=== PATIENT | male | born 1960 | race Caucasian/White ===

== ENCOUNTER 2022-12-28 10:58 | Inpatient (IN) | payer OTHER, MEDICAID ==
[~2022-12-28] VITALS: Ht 182.9 cm; Wt 111.6 kg
--- NOTE | 2022-12-28 11:01 | NUR ---
PATIENT BIBA TO BED 4.
[2022-12-28 11:04] VITALS: BP 136/83
[2022-12-28] MEDS ORDERED: NACL 0.9% 1,000 ML IV SCH (11:10)
[2022-12-28] MEDS ORDERED: KETOROLAC 15 MG/ML VIAL IVP ONE (11:15)
[2022-12-28 12:12] LABS: BASOPHILS # (AUTO) 0.1 K/uL (0.00-0.22); BASOPHILS % (AUTO) 0.7 % (0.0-2.0); EOSINOPHILS # (AUTO) 0.1 K/uL (0-0.4); EOSINOPHILS % (AUTO) 1.4 % (0.0-4.0); HEMATOCRIT 42.6 % (36-52); HEMOGLOBIN 14.7 g/dL (12.0-18.0); LYMPHOCYTES # (AUTO) 1.4 K/uL (2.0-11.5); LYMPHOCYTES % (AUTO) 16.7 % (20.5-51.1); MEAN CORPUSCULAR HEMOGLOBIN 30 pg (27-31); MEAN CORPUSCULAR HGB CONC 35 g/dL (33-37); MEAN CORPUSCULAR VOLUME 87.6 fL (80-94); MONOCYTES # (AUTO) 0.7 K/uL (0.8-1.0); MONOCYTES % (AUTO) 9.1 % (1.7-9.3); NEUTROPHILS # (AUTO) 5.9 K/uL (1.8-7.7); NEUTROPHILS % (AUTO) 72.1 % (42.2-75.2); PLATELET COUNT (AUTO) 304 K/uL (140-450); RED BLOOD CELL COUNT(AUTO) 4.86 MIL/uL (4.20-6.10); RED CELL DISTRIBUTION WIDTH 13.2 % (11.6-13.7); WHITE BLOOD COUNT (AUTO) 8.1 K/uL (4.8-10.8)
[2022-12-28] MEDS ORDERED: DOCUSATE SODIUM 100 MG GELCAP PO SCH (12:20)
[2022-12-28] MEDS ORDERED: POLYETHYLENE GLYCOL 17 GM/PKT PO ONE (12:20)
[2022-12-28] MEDS ORDERED: LACTULOSE 20 GM/30 ML UDC PO ONE (12:20)
[2022-12-28] MEDS ORDERED: SODIUM PHOSPHATE 118 ML ENEM RC ONE (12:20)
[2022-12-28 12:35] LABS: APPEARANCE,URINE CLEAR (CLEAR); BILIRUBIN,URINE NEGATIVE (NEGATIVE); BLOOD, URINE NEGATIVE (NEGATIVE); COLOR,URINE YELLOW (YELLOW); LEUKOCYTE ESTERASE ,URINE NEGATIVE (NEGATIVE); NITRITE, URINE NEGATIVE (NEGATIVE); PH,URINE 6.5 (5.0-9.0); UGLUCOSE NEGATIVE (NEGATIVE)
[2022-12-28 12:45] LABS: ALBUMIN 4.3 g/dL (3.4-5.0); ANION GAP 13.2 (8-16); CARBON DIOXIDE 27.4 mmol/L (21-32); CREATININE 1.4 mg/dL (0.6-1.3); POTASSIUM 4.6 mmol/L (3.5-5.1); TOTAL BILIRUBIN 0.5 mg/dL (0.0-1.0)
[2022-12-28] MEDS ORDERED: NA P133N16 RC (13:47)
[2022-12-28] MEDS ORDERED: DOCU-299 PO (13:47)
[2022-12-28] MEDS ORDERED: LACT-85 PO (13:47)
[2022-12-28] MEDS ORDERED: POLY17PD72 PO (13:47)
--- NOTE | 2022-12-28 14:39 | NUR ---
PT AMBULATES INDEPENDENTLY WITH STEADY GAIT, VOIDS URINE IN BATHROOM TOLERATED ENEMA, STAYED IN L SIDE LYING FOR OVER 5 MINUTES. UNSUCCESSFUL BOWEL MOVEMENT IN BR
[2022-12-28] MEDS ORDERED: AMLO10TA88 PO (16:53)
[2022-12-28] MEDS ORDERED: CLON0.1T16 PO (16:53)
[2022-12-28] MEDS ORDERED: GEMF600T6 PO (16:53)
[2022-12-28] MEDS ORDERED: [UNRECOGNIZED DRUG - CODE] PO (16:53)
[2022-12-28] MEDS ORDERED: HYDR-4255 PO (16:53)
[2022-12-28] MEDS ORDERED: LISI20TA29 PO (16:53)
[2022-12-28] MEDS ORDERED: TAMS0.4C97 PO (16:53)
[2022-12-28] MEDS ORDERED: ATI.5 (16:53)
[2022-12-28] MEDS ORDERED: METO-251 PO (16:53)
[2022-12-28] MEDS ORDERED: BUSP10TA4 PO (16:53)
[2022-12-28] MEDS ORDERED: OMEP1CAP PO (16:53)
[2022-12-28] MEDS ORDERED: SODI100076 PO (16:53)
[2022-12-28] MEDS ORDERED: DOCU-3 PO (16:53)
[2022-12-28] MEDS ORDERED: OLAN10TA70 PO (16:53)
[2022-12-28] MEDS ORDERED: NACL 0.9% 1,000 ML IV ONE (17:45)
--- NOTE | 2022-12-28 20:16 | NUR ---
PER DR. WATTS PLACE ORDER FOR CT WITH CONTRAST FOR ABD AND PELVIS
--- NOTE | 2022-12-28 20:53 | NUR ---
Pt report given to Spencer ARRIETA. Transfer of care at this time.
[2022-12-28 21:20] VITALS: BP 160/79
--- NOTE | 2022-12-28 21:20 | NUR ---
RECEIVED PT FROM ER, AWAKE, ALERT AND ORIENTED X 4. DENIES PAIN. DENIES SHORTNESS OF BREATH. SKIN WARM AND DRY TO TOUCH. SAFETY PRECAUTIONS IN PLACE, CALL LIGHT GIVEN TO PT, PROVIDED INSTRUCTION ON USE, RETURN DEMO DONE, ENCOURAGED TO CALL IF ASSISTANCE IS NEEDED, PT VERBALLY AGREED.
[2022-12-28] MEDS ORDERED: MAG SULF 2000 MG/WATER PREMIX 50 ML IV PRN (21:40)
[2022-12-28] MEDS ORDERED: POTASSIUM CHLORIDE 10 MEQ TABER PO PRN (21:40)
[2022-12-28] MEDS ORDERED: DOCUSATE SODIUM 100 MG GELCAP PO PRN (21:40)
[2022-12-28] MEDS ORDERED: ONDANSETRON 4 MG/2 ML VIAL IVP PRN (21:40)
[2022-12-28] MEDS ORDERED: ACETAMINOPHEN 325 MG TAB PO PRN (21:40)
[2022-12-28] MEDS ORDERED: MORPHINE SULFATE 2 MG/ML SYR IVP PRN (21:40)
[2022-12-28] MEDS: METOPROLOL 50 MG TAB PO SCH (22:10)
[2022-12-28] MEDS: LORazepam 2 MG/ML VIAL IVP PRN (22:11)
[2022-12-28] MEDS: ZOLPIDEM 10 MG TAB PO PRN (23:23)
[2022-12-29] VITALS: BP 140/84
--- NOTE | 2022-12-29 00:14 | NUR ---
CLARIFIED ORDER FOR CT SCAN ABDOMEN/PELVIS WITH CONTRAST WITH DR. BELTRAN SINCE PT HAD CT SCAN ABD/PELVIS WITHOUT CONTRAST, PER DC ORDER. WILL CARRY OUT.
--- NOTE | 2022-12-29 00:24 | NUR ---
PATIENT IS ASLEEP. NO S/SX OF PAIN NOR DISCOMFORT. CALL LIGHT IN REACH.
[2022-12-29 04:00] VITALS: BP 156/91
--- NOTE | 2022-12-29 06:19 | NUR ---
PATIENT IS ASLEEP. NO DISTRESS NOTED. ALL NEEDS ATTENDED TO. SAFETY PRECAUTIONS MAINTAINED DURING THE SHIFT, CALL LIGHT REMAINS WITHIN REACH.
[2022-12-29 06:40] LABS: BASOPHILS % (AUTO) 0.6 % (0.0-2.0); EOSINOPHILS # (AUTO) 0.2 K/uL (0-0.4); EOSINOPHILS % (AUTO) 1.9 % (0.0-4.0); HEMOGLOBIN 14.7 g/dL (12.0-18.0); LYMPHOCYTES # (AUTO) 1.2 K/uL (2.0-11.5); LYMPHOCYTES % (AUTO) 13.6 % (20.5-51.1); MEAN CORPUSCULAR HEMOGLOBIN 30 pg (27-31); MEAN CORPUSCULAR HGB CONC 35 g/dL (33-37); MEAN CORPUSCULAR VOLUME 86.9 fL (80-94); MONOCYTES # (AUTO) 0.7 K/uL (0.8-1.0); MONOCYTES % (AUTO) 8.4 % (1.7-9.3); NEUTROPHILS # (AUTO) 6.5 K/uL (1.8-7.7); NEUTROPHILS % (AUTO) 75.5 % (42.2-75.2); PLATELET COUNT (AUTO) 301 K/uL (140-450); RED BLOOD CELL COUNT(AUTO) 4.83 MIL/uL (4.20-6.10); RED CELL DISTRIBUTION WIDTH 13.7 % (11.6-13.7); WHITE BLOOD COUNT (AUTO) 8.6 K/uL (4.8-10.8)
[2022-12-29 06:45] LABS: ANION GAP 13.5 (8-16); CARBON DIOXIDE 27.6 mmol/L (21-32); CREATININE 1.2 mg/dL (0.6-1.3); POTASSIUM 4.1 mmol/L (3.5-5.1)
--- NOTE | 2022-12-29 07:25 | NUR ---
RECEIVED REPORT FROM BLOCKMASON NURSE. PATIENT LYING DOWN IN BED, NO DISTRESS NOTED. DENIES ANY PAIN. IV SITE INTACT, PATENT, AND INFUSING IVF PER MD ORDERS. SKIN INTACT. REVIEWED PLAN OF CARE WITH PATIENT. REINFORCEMENT NEEDED. SAFETY MEASURES IN PLACE, CALL LIGHT WITHIN REACH. WILL CONTINUE TO MONITOR.
[2022-12-29 08:00] VITALS: BP 151/97
[2022-12-29] MEDS: LACTULOSE 20 GM/30 ML UDC PO SCH (08:31)
[2022-12-29] MEDS: DOCUSATE SODIUM 100 MG GELCAP PO SCH ×2 (08:32→20:06)
[2022-12-29] MEDS: lisinopriL 20 MG TAB PO SCH (08:32)
[2022-12-29] MEDS: gemfibroziL 600 MG TAB PO SCH ×2 (08:33→20:05)
[2022-12-29] MEDS: METOPROLOL 50 MG TAB PO SCH ×2 (08:34→20:06)
[2022-12-29] MEDS: TAMSULOSIN 0.4 MG CAP PO SCH (08:34)
[2022-12-29] MEDS: amLODIPine 5 MG TAB PO SCH (08:34)
[2022-12-29] MEDS: CLONIDINE HYDROCHLORIDE 0.1 MG TAB PO SCH ×2 (08:37→20:05)
[2022-12-29] MEDS: hydrOXYzine PAMOATE 25 MG CAP PO SCH (08:47)
--- NOTE | 2022-12-29 08:55 | NUR ---
SCHEDULED MEDICATIONS DUE GIVEN. WILL CONTINUE TO MONITOR.
--- NOTE | 2022-12-29 09:11 | NUR ---
PATIENT HAS BEEN SCREENED AND CATEGORIZED LOW NUTRITION RISK. PATIENT WILL BE SEEN WITHIN 7 DAYS OF ADMISSION. 01/04/[address] BY ANIVAL [address] RD
[2022-12-29 12:00] VITALS: BP 120/81
[2022-12-29] MEDS: LORazepam 2 MG/ML VIAL IVP PRN (14:39)
--- NOTE | 2022-12-29 14:39 | NUR ---
COMPLAINS OF ANXIETY. ATIVAN PRN GIVEN AT THIS TIME. FLEET ENEMA X 1 ALSO GIVEN AT THIS TIME PER MD ORDERS. WILL CONTINUE TO MONITOR.
[2022-12-29 16:00] VITALS: BP 132/86
[2022-12-29] MEDS ORDERED: bisacodyL 5 MG TABEC PO SCH (16:00)
[2022-12-29] MEDS ORDERED: SUPREP BOWEL PREP KIT 354 ML SOLN.RECON PO SCH (16:00)
--- NOTE | 2022-12-29 19:25 | NUR ---
GAVE REPORT TO [place] NURSE FOR CONTINUITY OF CARE.
--- NOTE | 2022-12-29 19:30 | NUR ---
RECEIVED PT IN BED AWAKE,ALERT AND ORIENTED. DENIES PAIN. NO ACUTE RESPIRATORY DISTRESS NOTED. SKIN WARM AND DRY TO TOUCH. SAFETY PRECAUTIONS IN PLACE, CALL LIGHT IN REACH.
[2022-12-29 19:55] VITALS: BP 128/79
[2022-12-29] MEDS: ZOLPIDEM 10 MG TAB PO PRN (20:46)
--- NOTE | 2022-12-29 21:36 | NUR ---
SPOKE WITH MARYCRUZ OF TELEPSYCH, INFORMATION GIVEN AND WILL HAVE SOMEONE CALL IN AM FOR THE CONSULT. MUSIC EDUCATION ADJUNCT PROFESSOR MADE AWARE AND WILL ENDORSE IN AM.
--- NOTE | 2022-12-29 22:20 | NUR ---
SPOKE WITH MICHAEL OF ULTRASOUND, PT DOES NOT HAVE TO BE NPO FOR KUB IN AM.
[2022-12-30] VITALS (7 sets, daily range): BP systolic 99–135; BP diastolic 55–93
--- NOTE | 2022-12-30 | NUR ---
VITAL SIGNS TAKEN AND DOCUMENTED. NO DISTRESS NOTED. CALL LIGHT IN REACH.
--- NOTE | 2022-12-30 06:33 | NUR ---
PATIENT IS ASLEEP. ALL NEEDS ATTENDED TO. NO DISTRESS NOTED. SAFETY PRECAUTIONS MAINTAINED DURING THE SHIFT, CALL LIGHT REMAINS WITHIN REACH.
--- NOTE | 2022-12-30 08:00 | NUR ---
rECEIVED IN NO ACUTE DISTRESS, DENIES DISCOMFORT
[2022-12-30] MEDS: lisinopriL 20 MG TAB PO SCH (09:00)
[2022-12-30] MEDS: amLODIPine 5 MG TAB PO SCH (09:00)
[2022-12-30] MEDS: DOCUSATE SODIUM 100 MG GELCAP PO SCH (09:00)
[2022-12-30] MEDS: LACTULOSE 20 GM/30 ML UDC PO SCH (09:00)
[2022-12-30] MEDS: CLONIDINE HYDROCHLORIDE 0.1 MG TAB PO SCH ×3 (09:00→17:47)
[2022-12-30] MEDS: hydrOXYzine PAMOATE 25 MG CAP PO SCH (09:00)
[2022-12-30] MEDS: TAMSULOSIN 0.4 MG CAP PO SCH (09:00)
[2022-12-30] MEDS: gemfibroziL 600 MG TAB PO SCH ×2 (09:00→17:48)
[2022-12-30] MEDS: METOPROLOL 50 MG TAB PO SCH ×2 (09:00→17:20)
--- NOTE | 2022-12-30 09:27 | NUR ---
DC PLANNING LATE BOONE PT SEEN 12/29 ASSESSMENT COMPLETE PLEASE REFER TO ASSESSMENT FOR ADDITIONAL DETAILS PT IS A 62 YR OLD MALE ADMITTED TO [facility] FROM HOME ([facility]) WITH DX OF CONSTIPATION, SUDDEN INTRACT. PT HAS PAST MEDICAL HX OF HTN, BIPOLAR DISORDER, SCHIZOPHRENIA, ANXIETY AND GERD PT REPORTS MENTAL HLTH HX OF BIPOLAR D/O, ANXIETY AND REPORTS MEETING WITH PSYCHIATRIST EVERY TWO WEEKS FOR MEDICATION MANAGEMENT. PT REPORTS LIMITED FAMILY SUPPORT MOST OF HIS FAMILY HAVE PASSED. PT IDENTIFIED EC CLOSE FRIENDS. PT REPORTS BEING INDEPENDENT IN ALL ACTIVITIES AND DENIES USE OF DME. PT REPORTS COMPLETING ALL ADLS INDEPENDENTLY. PT REPORTS BEING RESIDENT OF [facility] FOR APPRX 8 YRS. PT REPORTS RECEIVING HOME HEALTH AND REPORTS NURSE TYPICALLY COMES TO CHECK HIS VITALS. PT REPORTS BEING RESIDENT OF [facility] FOR APPRX 8 YRS. PT REPORTS TENTATIVE DC PLAN IS TO RETURN HOME, WHEN MEDICALLY STABLE Addendum: 12/30/22 at 0929 by Nkechi MORRIS Amended: Links added.
--- NOTE | 2022-12-30 19:20 | NUR ---
RECEIVED PATIENT IN BED, AWAKE, ALERT AND ORIENTED. DENIES PAIN. DENIES SHORTNESS OF BREATH. SKIN WARM AND DRY TO TOUCH. BED IN THE LOWEST AND LOCKED POSITION FOR SAFETY, CALL LIGHT IN REACH.
[2022-12-30] MEDS: SUPREP BOWEL PREP KIT 354 ML SOLN.RECON PO SCH (19:30)
[2022-12-30] MEDS: ZOLPIDEM 10 MG TAB PO PRN (21:49)
--- NOTE | 2022-12-30 23:00 | NUR ---
PT MOVED TO 124-A WITH ALL BELONGINGS.
[2022-12-31] VITALS: BP 121/84
--- NOTE | 2022-12-31 02:30 | NUR ---
ROUNDING DONE. PATIENT IS ASLEEP.NO S/SX OF PAIN NOR DISCOMFORT. CALL LIGHT IN REACH.
[2022-12-31 04:00] VITALS: BP 134/75
[2022-12-31] MEDS: SUPREP BOWEL PREP KIT 354 ML SOLN.RECON PO SCH (05:12)
--- NOTE | 2022-12-31 05:12 | NUR ---
DUE MEDICATION GIVEN ORDERED, TOLERATED WELL. NPO AT THIS TIME, PT AWARE.
--- NOTE | 2022-12-31 06:37 | NUR ---
PATIENT IS ASLEEP. NO DISTRESS NOTED. ALL NEEDS ATTENDED TO. SAFETY PRECAUTIONS MAINTAINED DURING THE SHIFT, CALL LIGHT REMAINS WITHIN REACH.
[2022-12-31 08:00] VITALS: BP 128/89
--- NOTE | 2022-12-31 08:00 | NUR ---
NURSE REPORT REPORT OBTAINED FROM NIGHT NURSE TREE AND THIS NURSE ASSUMED CARE OF PATIENT. VSS. AFEB. NO C/O PAIN OR DISCOMFORT. ELLA FLANNERY RN
[2022-12-31] MEDS: hydrOXYzine PAMOATE 25 MG CAP PO SCH (09:00)
[2022-12-31] MEDS: LACTULOSE 20 GM/30 ML UDC PO SCH (09:34)
[2022-12-31] MEDS: DOCUSATE SODIUM 100 MG GELCAP PO SCH ×2 (09:34→21:17)
[2022-12-31] MEDS: gemfibroziL 600 MG TAB PO SCH ×2 (09:35→21:16)
[2022-12-31] MEDS: METOPROLOL 50 MG TAB PO SCH ×2 (09:35→21:17)
[2022-12-31] MEDS: CLONIDINE HYDROCHLORIDE 0.1 MG TAB PO SCH ×2 (09:36→21:18)
[2022-12-31] MEDS: lisinopriL 20 MG TAB PO SCH (09:38)
[2022-12-31] MEDS: amLODIPine 5 MG TAB PO SCH (09:38)
[2022-12-31] MEDS: TAMSULOSIN 0.4 MG CAP PO SCH (09:39)
[2022-12-31] MEDS: LORazepam 2 MG/ML VIAL IVP PRN (09:39)
--- NOTE | 2022-12-31 10:00 | NUR ---
NURSE NOTES NPO FOR COLONSCOPY AND PATIENT PROCEDURE IS NOT UNITL 2 PM. GIVEN AM MEDS WITH SIP OF WATER AND PATIENT TOLD NOT TO EAT OR DRINK ANYMORE. HAS BEEN NPO SINCE MN.
[2022-12-31 12:00] VITALS: BP 105/79
[2022-12-31] MEDS ORDERED: fentaNYL citrate 0.05 MG/ML VIAL ONE (13:36)
[2022-12-31] MEDS ORDERED: diphenhydrAMINE 50 MG/ML VIAL ONE (13:36)
[2022-12-31] MEDS ORDERED: MIDAZOLAM 5 MG/5 ML VIAL ONE (13:37)
--- NOTE | 2022-12-31 14:00 | NUR ---
NURSE NOTES PATIENT WENT TO COLONOSCOPY VIA BED.
--- NOTE | 2022-12-31 15:05 | NUR ---
NURSE NOTES REPORT FROM RECOVERY ROOM AFTER COLONOSCOPY AND PATIENT HAD 1 POLYP AND IT WAS REMOVED. HAD VERSED 4 MG AND 100 MCG FENTANYL. BP 96/58.
[2022-12-31] MEDS ORDERED: MIDAZOLAM 2 MG/2 ML VIAL IVP ONE (15:10)
[2022-12-31] MEDS ORDERED: fentaNYL citrate 0.05 MG/ML VIAL IVP ONE (15:10)
[2022-12-31 16:00] VITALS: BP 112/79
--- NOTE | 2022-12-31 16:00 | NUR ---
NURSE NOTES VSS. AFEB. NO C/O PAIN OR DISCOMFORT. TELE WITH SR 75 WITH BBB
--- NOTE | 2022-12-31 19:20 | NUR ---
NURSE REPORT REPORT GIVEN TO NIGHT NURSE ASAF TO ASSUME CARE OF PATIENT. ALL QUESTIONS ANSWERED. ELLA FLANNERY RN
[2022-12-31 20:00] VITALS: BP 125/84
--- NOTE | 2022-12-31 20:00 | NUR ---
PM NURSING NARRATIVE (OPENING)1930 HAND-OFF REPORT RECEIVED FROM DAVID DAY SHIFT NURSE FOLLOWING BEDSIDE ROUNDS. REPORTED: DX CONSTIPATION, ABD BLOATING,PT RECEIVED BACK FROM COLONOSCOPY AT APPROX 1400, 1 POLYP REMOVED, FINDINGS DIVERTICULOSIS, KUB NEGATIVE, TELE-PSYCH COMPLETED, REGULAR DIET MARCO WELL. PT RECEIVED REPORTED. "I JUST WANT MY MEDS AND A SLEEPING PILL MA'AM." DENIES ALL PAIN. ABD. SOFT AND BLOATED. NO ACUTE DISTRESS NO BLEEDING.
--- NOTE | 2022-12-31 21:30 | NUR ---
AMBIEN 10 MG REQUESTED AND GIVEN. DENIES PAIN. WARM BLANKET GIVEN AND LIGHTS OUT.
--- NOTE | 2022-12-31 22:00 | NUR ---
MEDICATED WITH ROUTINE MEDS AND AMBIEN. NO /CO
[2023-01-01] VITALS: BP 115/80
--- NOTE | 2023-01-01 | NUR ---
TELEMETRY HR 87 (CORRECTION)
--- NOTE | 2023-01-01 | NUR ---
PT RESTING WITHOUT C/O
[2023-01-01 04:00] VITALS: BP 112/70
--- NOTE | 2023-01-01 04:00 | NUR ---
PT CONTINUES SAME. UNEVENTFUL NOC.
--- NOTE | 2023-01-01 07:20 | NUR ---
ENDORSED PATIENT TO PM NURSE FOR CONTINUITY OF CARE.
--- NOTE | 2023-01-01 07:30 | NUR ---
PM NURSING NARRATIVE (CLOSING) 2240 HAND-OFF REPORT TO TEREZA RN FOR CONTINUITY OF CARE. POST COLONOSCOPY. NO BLEEDING. NO PAIN. AMBIEN 10 EFFECTIVE ALL NOC. POSS D/C. RELINQUISHED CARE OF PT AT THIS TIME.
--- NOTE | 2023-01-01 07:30 | NUR ---
RECIEVED PATIENT FROM PM SHIFT NURSE. PATIENT VITALS STABLE SEEN SLEEPING ON BED. NORMAL RISE AND FALL OF CHEST, BREATHING. REVIEWED PLAN OF CARE FOR CONTINUATION OF CARE.
[2023-01-01 08:00] VITALS: BP 138/89
[2023-01-01] MEDS: CLONIDINE HYDROCHLORIDE 0.1 MG TAB PO SCH ×2 (09:42→11:20)
[2023-01-01] MEDS: LACTULOSE 20 GM/30 ML UDC PO SCH (09:43)
[2023-01-01] MEDS: TAMSULOSIN 0.4 MG CAP PO SCH (09:44)
[2023-01-01] MEDS: gemfibroziL 600 MG TAB PO SCH ×2 (09:44→21:46)
[2023-01-01] MEDS: DOCUSATE SODIUM 100 MG GELCAP PO SCH ×2 (09:44→21:46)
[2023-01-01] MEDS: METOPROLOL 50 MG TAB PO SCH ×2 (09:45→21:45)
[2023-01-01] MEDS: hydrOXYzine PAMOATE 25 MG CAP PO SCH (09:46)
[2023-01-01] MEDS: amLODIPine 5 MG TAB PO SCH (09:46)
[2023-01-01] MEDS: lisinopriL 20 MG TAB PO SCH (09:46)
[2023-01-01 12:00] VITALS: BP 130/88
[2023-01-01 16:00] VITALS: BP 123/82
--- NOTE | 2023-01-01 19:20 | NUR ---
ENDORSED PATIENT TO PM NURSE FOR CONTINUITY OF CARE.
[2023-01-01 20:00] VITALS: BP 119/83
--- NOTE | 2023-01-01 20:00 | NUR ---
PM NURSING NARRATIVE (OPENING) 193 UPDATE OF CHANGES RECEIVED FROM TEREZA DAY SHIFT NURSE FOLLOWING BEDSIDE ROUNDS. REPORTED: NO POOP TODAY. DIZZY EPISODE X1, PT TEACHING CONCERNING HIGH FIBER DIET. PT RECEIVED A/OX4. BRP WITH SMALL SMEAR OF STOOL. PASSING GAS. DENIES DIZZINESS. REQUESTING SOMETHING FOR ANXIETY. CONTINUES TO VOICE CONCERNS ABOUT NOT HAVING A STOOL YET. REASSURED IT'S WORKING ITS WAY DOWN WITH ACTIVITY, WATER AND DIET.
--- NOTE | 2023-01-01 21:46 | NUR ---
ATIVAN 2MG IVP FOR ANXIETY
[2023-01-01] MEDS: LORazepam 2 MG/ML VIAL IVP PRN (22:18)
--- NOTE | 2023-01-02 07:30 | NUR ---
PM NURSING NARRATIVE (CLOSING) HAND-OFF REPORT TO RETURNING RN. PT MED WITH ATIVAN 2145 AND REQUESTED TO NOT AWAKEN THRU THE NOC. ALLOWED TO SLEEP. RUBBING BED OPERATOR SB/BBB 50s AND SR/BBB 65. RESTFUL NOC. NO DISTRESS. RELINQUISHED CARE OF PT AT THIS TIME. STILL SLEEPING. ATIVAN VERY EFFECTIVE.
--- NOTE | 2023-01-02 07:49 | NUR ---
RECEIVED PATIENT FROM PM SHIFT NURSE FOR CONTINUATION OF CARE. PATIENT SEEN ON BED ASLEEP WITH NORMAL RISE AND FALL OF CHEST. PATIENT MONITORING AND CARE CONTINUED.
[2023-01-02 08:00] VITALS: BP 117/76
[2023-01-02] MEDS: METOPROLOL 50 MG TAB PO SCH (09:04)
[2023-01-02] MEDS: hydrOXYzine PAMOATE 25 MG CAP PO SCH (09:05)
[2023-01-02] MEDS: gemfibroziL 600 MG TAB PO SCH (09:06)
[2023-01-02] MEDS: TAMSULOSIN 0.4 MG CAP PO SCH (09:06)
[2023-01-02] MEDS: DOCUSATE SODIUM 100 MG GELCAP PO SCH (09:06)
[2023-01-02] MEDS: CLONIDINE HYDROCHLORIDE 0.1 MG TAB PO SCH ×2 (09:08→15:42)
[2023-01-02] MEDS: lisinopriL 20 MG TAB PO SCH (09:09)
[2023-01-02] MEDS: amLODIPine 5 MG TAB PO SCH (09:10)
[2023-01-02] MEDS: LACTULOSE 20 GM/30 ML UDC PO SCH (09:10)
[2023-01-02] MEDS: LORazepam 2 MG/ML VIAL IVP PRN (09:19)
[2023-01-02 12:00] VITALS: BP 97/65
--- NOTE | 2023-01-02 12:00 | NUR ---
PATIENT HAD 3 BOWEL MOVEMENTS.
[2023-01-02 16:00] VITALS: BP 96/69
[2023-01-02] MEDS ORDERED: LINA145C PO (16:02)
[2023-01-02] MEDS ORDERED: METH2PDR26 PO (16:04)
[2023-01-02 16:14] VITALS: BP 96/69
[2023-01-02 16:39] VITALS: BP 96/69
== END 2023-01-02 17:44 | disposition home or self-care (01) | DRG 394 ==
LOC: MED 10:58 → MMU 17:49 → MTU 18:45 → MMU 12-30 22:30
PROC: 0DBM8ZZ Excision of Descending Colon, Via Natural or Artificial Opening Endoscopic (ICD-10-PCS; principal; 2022-12-31 17:40)
DX: K63.5 Polyp of colon (principal); E87.1 Hypo-osmolality and hyponatremia; N17.9 Acute kidney failure, unspecified; K59.00 Constipation, unspecified; K63.89 Other specified diseases of intestine; K57.90 Diverticulosis of intestine, part unspecified, without perforation or abscess without bleeding; N40.0 Benign prostatic hyperplasia without lower urinary tract symptoms; F20.9 Schizophrenia, unspecified; F31.9 Bipolar disorder, unspecified; K21.9 Gastro-esophageal reflux disease without esophagitis; J45.909 Unspecified asthma, uncomplicated; E87.8 Other disorders of electrolyte and fluid balance, not elsewhere classified; I10 Essential (primary) hypertension; T50.905A Adverse effect of unspecified drugs, medicaments and biological substances, initial encounter; Z20.822 Contact with and (suspected) exposure to COVID-19; Z79.899 Other long term (current) drug therapy; Y92.89 Other specified places as the place of occurrence of the external cause
CPT/HCPCS: 36415; 74018; 80048; 80053; 81003; 82150; 83690; 83735; 85025; 87081; 88305; 96361; 96374; 97116; 97163-GP; 99285; J1200; J1885; J2060; J2250; J2405; J3010; Q0092; Q0177

== ENCOUNTER 2023-11-11 12:27 | Inpatient (IN) | payer OTHER, MEDICAID ==
[~2023-11-11] VITALS: Ht 177.8 cm; Wt 101.2 kg
[~2023-11-11 12:27] MED LIST: AMLO10TA88 PO; ATI.5; BUSP10TA4 PO; CLON0.1T16 PO; DOCU-299 PO; DOCU-3 PO; GEMF600T6 PO; HYDR-4255 PO; LACT-85 PO; LINA145C PO; LISI20TA29 PO; METH2PDR26 PO; METO-251 PO; NA P133N16 RC; OLAN10TA70 PO; OMEP1CAP PO; POLY17PD72 PO; SODI100076 PO; TAMS0.4C97 PO; [UNRECOGNIZED DRUG - CODE] PO
[2023-11-11 12:38] VITALS: BP 132/83; PULSE 69; RESP 16; TEMP 98; O2SAT 70
[2023-11-11 13:22] VITALS: O2SAT 70
[2023-11-11 14:07] LABS: BASOPHILS # (AUTO) 0.1 K/uL (0.00-0.22); EOSINOPHILS # (AUTO) 0.1 K/uL (0-0.4); EOSINOPHILS % (AUTO) 1.9 % (0.0-4.0); HEMATOCRIT 43.3 % (36-52); HEMOGLOBIN 15.1 g/dL (12.0-18.0); LYMPHOCYTES # (AUTO) 0.9 K/uL (2.0-11.5); LYMPHOCYTES % (AUTO) 16.6 % (20.5-51.1); MEAN CORPUSCULAR HEMOGLOBIN 31 pg (27-31); MEAN CORPUSCULAR HGB CONC 35 g/dL (33-37); MEAN CORPUSCULAR VOLUME 87.5 fL (80-94); MONOCYTES # (AUTO) 0.6 K/uL (0.8-1.0); MONOCYTES % (AUTO) 11.3 % (1.7-9.3); NEUTROPHILS # (AUTO) 3.9 K/uL (1.8-7.7); NEUTROPHILS % (AUTO) 69.2 % (42.2-75.2); PLATELET COUNT (AUTO) 266 K/uL (140-450); RED BLOOD CELL COUNT(AUTO) 4.95 MIL/uL (4.20-6.10); RED CELL DISTRIBUTION WIDTH 13.1 % (11.6-13.7); WHITE BLOOD COUNT (AUTO) 5.6 K/uL (4.8-10.8)
[2023-11-11] MEDS: LORazepam 1 MG TAB PO ONE (14:57)
[2023-11-11] MEDS ORDERED: ALPR1TAB17 PO (15:15)
[2023-11-11] MEDS ORDERED: CARV6.252 PO (15:15)
[2023-11-11] MEDS ORDERED: TRAZ-471 PO (15:15)
[2023-11-11] MEDS ORDERED: [UNRECOGNIZED DRUG - CODE] PO (15:15)
[2023-11-11] MEDS ORDERED: PANT40EC56 PO (15:15)
[2023-11-11] MEDS ORDERED: GEMF-65 PO (15:15)
[2023-11-11 15:17] LABS: ANION GAP 14.6 (8-16); CALCIUM 9.1 mg/dL (8.5-10.1); CARBON DIOXIDE 22.5 mmol/L (21-32); CREATININE 1.1 mg/dL (0.6-1.3); POTASSIUM 4.1 mmol/L (3.5-5.1)
[2023-11-11 15:18] VITALS: O2SAT 70
[2023-11-11] MEDS ORDERED: MELATONIN 3 MG TAB PO PRN (19:40)
[2023-11-11 19:42] VITALS: O2SAT 97
[2023-11-11] MEDS: ONDANSETRON 4 MG ODT SL PRN (19:54)
[2023-11-11 20:35] VITALS: BP 144/86; PULSE 69; PULSE 74; RESP 20; TEMP 98.1; O2SAT 95; O2SAT 96
[2023-11-11] MEDS: ZOLPIDEM 5 MG TAB PO SCH (22:21)
[2023-11-11] MEDS ORDERED: ONDANSETRON 4 MG/2 ML VIAL IVP PRN (23:05)
[2023-11-11] MEDS ORDERED: ACETAMINOPHEN 325 MG TAB PO PRN (23:05)
[2023-11-11] MEDS ORDERED: HYDROcodone/APAP 7.5/325 MG 1 TAB PO PRN (23:05)
[2023-11-11] MEDS ORDERED: SODIUM PHOSPHATE 118 ML ENEM RC PRN (23:05)
[2023-11-11] MEDS: NACL 0.9% 1,000 ML IV SCH (23:30)
[2023-11-12] VITALS: BP 139/92; PULSE 69; PULSE 78; RESP 20; TEMP 98; O2SAT 95
[2023-11-12] MEDS: LORazepam 0.5 MG TAB PO PRN (00:54)
[2023-11-12 01:06] LABS: ANION GAP 15.9 (8-16); CALCIUM 9.1 mg/dL (8.5-10.1); CARBON DIOXIDE 25.3 mmol/L (21-32); CREATININE 1.2 mg/dL (0.6-1.3); POTASSIUM 4.2 mmol/L (3.5-5.1)
[2023-11-12 01:12] LABS: INR 1.06 (0.8-1.2); PARTIAL THROMBOPLASTIN TIME 28.1 secs (22-35.6); PROTHROMBIN TIME 11.1 secs (10.8-13.4)
[2023-11-12 01:13] LABS: HEMATOCRIT 46.6 % (36-52); HEMOGLOBIN 15.9 g/dL (12.0-18.0); MEAN CORPUSCULAR HEMOGLOBIN 30 pg (27-31); MEAN CORPUSCULAR HGB CONC 34 g/dL (33-37); MEAN CORPUSCULAR VOLUME 88.3 fL (80-94); PLATELET COUNT (AUTO) 250 K/uL (140-450); RED BLOOD CELL COUNT(AUTO) 5.27 MIL/uL (4.20-6.10); RED CELL DISTRIBUTION WIDTH 13.1 % (11.6-13.7); WHITE BLOOD COUNT (AUTO) 12.5 K/uL (4.8-10.8)
[2023-11-12 01:16] LABS: LACTIC ACID 1.2 mmol/L (0.4-2.0)
[2023-11-12 01:34] LABS: LYMPHOCYTES % (MANUAL) 6 % (20-46); MONOCYTES % (MANUAL) 6 % (5-12)
[2023-11-12 01:37] LABS: AMYLASE 94 U/L (25-115); CHOL/HDL RATIO 3.4 (1-4.5); CHOLESTEROL 225 mg/dL (<200); HDL CHOLESTEROL 67 mg/dL (40-60); LDL (CALC) 146 mg/dL (60-100); LIPASE 50 U/L (16-77); MAGNESIUM 1.8 mg/dL (1.8-2.4); PHOSPHORUS 2.9 mg/dL (2.5-4.9); THYROID STIMULATING HORMONE 1.39 uIU/mL (0.34-3.74); TRIGLYCERIDES 62 mg/dL (30-150)
[2023-11-12] MEDS: traZODone 50 MG TAB PO PRN (01:55)
[2023-11-12] MEDS: traZODone 50 MG TAB ONE (01:56)
[2023-11-12 04:00] VITALS: BP 132/84; PULSE 77; PULSE 81; RESP 18; TEMP 98.6; O2SAT 95
[2023-11-12 06:37] LABS: ANION GAP 14.7 (8-16); CALCIUM 8.7 mg/dL (8.5-10.1); CARBON DIOXIDE 23.2 mmol/L (21-32); CREATININE 1.1 mg/dL (0.6-1.3); POTASSIUM 3.9 mmol/L (3.5-5.1)
[2023-11-12 06:43] LABS: MAGNESIUM 1.7 mg/dL (1.8-2.4); PHOSPHORUS 2.9 mg/dL (2.5-4.9)
[2023-11-12 07:28] LABS: BASOPHILS # (AUTO) 0.1 K/uL (0.00-0.22); BASOPHILS % (AUTO) 0.6 % (0.0-2.0); EOSINOPHILS % (AUTO) 0.4 % (0.0-4.0); HEMATOCRIT 45.1 % (36-52); HEMOGLOBIN 15.6 g/dL (12.0-18.0); LYMPHOCYTES # (AUTO) 0.4 K/uL (2.0-11.5); LYMPHOCYTES % (AUTO) 3.7 % (20.5-51.1); MEAN CORPUSCULAR HEMOGLOBIN 31 pg (27-31); MEAN CORPUSCULAR HGB CONC 35 g/dL (33-37); MEAN CORPUSCULAR VOLUME 88.3 fL (80-94); MONOCYTES # (AUTO) 0.5 K/uL (0.8-1.0); MONOCYTES % (AUTO) 4.9 % (1.7-9.3); NEUTROPHILS # (AUTO) 9.4 K/uL (1.8-7.7); NEUTROPHILS % (AUTO) 90.4 % (42.2-75.2); PLATELET COUNT (AUTO) 231 K/uL (140-450); RED BLOOD CELL COUNT(AUTO) 5.11 MIL/uL (4.20-6.10); RED CELL DISTRIBUTION WIDTH 13.1 % (11.6-13.7); WHITE BLOOD COUNT (AUTO) 10.4 K/uL (4.8-10.8)
[2023-11-12 08:00] VITALS: BP 122/78; PULSE 74; PULSE 82; RESP 18; TEMP 97.3; O2SAT 96
[2023-11-12] MEDS: lisinopriL 20 MG TAB PO SCH (09:00)
[2023-11-12] MEDS ORDERED: PANTOPRAZOLE 40 MG TABEC PO SCH (09:00)
[2023-11-12] MEDS ORDERED: DOCUSATE SODIUM 100 MG GELCAP PO SCH (09:00)
[2023-11-12] MEDS: carvediloL 6.25 MG TAB PO SCH (09:00)
[2023-11-12] MEDS: CLONIDINE HYDROCHLORIDE 0.1 MG TAB PO SCH (09:00)
[2023-11-12] MEDS ORDERED: hydrOXYzine PAMOATE 25 MG CAP PO SCH (09:00)
[2023-11-12] MEDS: DOCUSATE SODIUM 100 MG GELCAP PO SCH (09:10)
[2023-11-12] MEDS: gemfibroziL 600 MG TAB PO SCH (09:10)
[2023-11-12] MEDS: TAMSULOSIN 0.4 MG CAP PO SCH (09:11)
[2023-11-12] MEDS: PANTOPRAZOLE 40 MG INJ VIAL IVP SCH (09:11)
[2023-11-12] MEDS: SODIUM CHLORIDE 1 GM TAB PO SCH (09:11)
[2023-11-12] MEDS: busPIRone 5 MG TAB PO SCH ×2 (09:11→20:45)
[2023-11-12 10:12] LABS: APPEARANCE,URINE CLEAR (CLEAR); BILIRUBIN,URINE NEGATIVE (NEGATIVE); BLOOD, URINE NEGATIVE (NEGATIVE); COLOR,URINE YELLOW (YELLOW); LEUKOCYTE ESTERASE ,URINE NEGATIVE (NEGATIVE); NITRITE, URINE NEGATIVE (NEGATIVE); PH,URINE 6.5 (5.0-9.0); PROTEIN,URINE NEGATIVE (NEGATIVE); UGLUCOSE NEGATIVE (NEGATIVE); UROBILINOGEN,URINE 0.2 EU/dL (0.2 - 1)
[2023-11-12 10:39] LABS: AMPHETAMINE, URINE NEGATIVE ng/ml (NEG <=1000); BARBITURATE, URINE NEGATIVE ng/ml (NEG <=200); BENZODIAZEPINE, URINE POSITIVE ng/mL (NEG <=200); CANNABINOID, URINE NEGATIVE ng/mL (NEG <=50); COCAINE, URINE NEGATIVE ng/mL (NEG <=300); OPIATE, URINE NEGATIVE ng/mL (NEG <=2000); PHENCYCLIDINE SCREEN,URINE NEGATIVE ng/mL (NEG <=25)
[2023-11-12] MEDS: hydrOXYzine PAMOATE 25 MG CAP PO SCH (10:42)
[2023-11-12] MEDS: MAG SULF 2000 MG/WATER PREMIX 50 ML IV PRN (10:45)
[2023-11-12 12:00] VITALS: BP 141/94; PULSE 79; RESP 18; TEMP 97.8; O2SAT 96
[2023-11-12 16:00] VITALS: BP 147/81; PULSE 79; PULSE 80; RESP 18; TEMP 98.5; O2SAT 96
[2023-11-12] MEDS ORDERED: hydrOXYzine PAMOATE 25 MG CAP PO PRN (17:30)
[2023-11-12 20:00] VITALS: BP 135/89; PULSE 72; PULSE 84; RESP 18; TEMP 98.4; O2SAT 93
[2023-11-12] MEDS: QUEtiapine FUMARATE 100 MG TAB PO SCH (20:38)
[2023-11-12] MEDS: ALPRAZolam 0.5 MG TAB PO PRN (20:41)
[2023-11-12] MEDS ORDERED: QUEtiapine FUMARATE 25 MG TAB PO SCH (21:00)
[2023-11-13] VITALS: BP 111/72; PULSE 70; PULSE 83; RESP 18; TEMP 97; O2SAT 95
[2023-11-13 04:00] VITALS: BP 89/59; PULSE 57; PULSE 60; RESP 18; TEMP 97.2; O2SAT 95
[2023-11-13 07:19] LABS: BASOPHILS % (AUTO) 0.6 % (0.0-2.0); EOSINOPHILS # (AUTO) 0.1 K/uL (0-0.4); EOSINOPHILS % (AUTO) 1.1 % (0.0-4.0); HEMOGLOBIN 14.3 g/dL (12.0-18.0); LYMPHOCYTES % (AUTO) 19.9 % (20.5-51.1); MEAN CORPUSCULAR HEMOGLOBIN 31 pg (27-31); MEAN CORPUSCULAR HGB CONC 35 g/dL (33-37); MEAN CORPUSCULAR VOLUME 87.9 fL (80-94); MONOCYTES # (AUTO) 0.7 K/uL (0.8-1.0); MONOCYTES % (AUTO) 14.4 % (1.7-9.3); NEUTROPHILS # (AUTO) 3.3 K/uL (1.8-7.7); PLATELET COUNT (AUTO) 234 K/uL (140-450); RED BLOOD CELL COUNT(AUTO) 4.67 MIL/uL (4.20-6.10); RED CELL DISTRIBUTION WIDTH 12.8 % (11.6-13.7); WHITE BLOOD COUNT (AUTO) 5.1 K/uL (4.8-10.8)
[2023-11-13 07:30] LABS: CALCIUM 8.1 mg/dL (8.5-10.1); CARBON DIOXIDE 25.4 mmol/L (21-32); CREATININE 1.7 mg/dL (0.6-1.3); POTASSIUM 3.4 mmol/L (3.5-5.1)
[2023-11-13 07:32] LABS: MAGNESIUM 2.2 mg/dL (1.8-2.4); PHOSPHORUS 3.3 mg/dL (2.5-4.9)
[2023-11-13 08:00] VITALS: BP 100/63; PULSE 53; PULSE 56; RESP 18; TEMP 97.6; O2SAT 93; O2SAT 96
[2023-11-13] MEDS ORDERED: hydrOXYzine PAMOATE 25 MG CAP PO PRN (08:23)
[2023-11-13] MEDS ORDERED: ONDANSETRON 4 MG ODT SL PRN (08:25)
[2023-11-13 12:58] VITALS: BP 110/73; PULSE 56; PULSE 71; RESP 18; TEMP 97.5; O2SAT 96
[2023-11-13 16:00] VITALS: BP 107/68; PULSE 57; PULSE 60; RESP 19; TEMP 97.3; O2SAT 96
[2023-11-13] MEDS: POTASSIUM CHLORIDE 10 MEQ TABER PO PRN (17:07)
[2023-11-13 20:00] VITALS: BP 123/75; PULSE 58; PULSE 61; RESP 18; TEMP 97.2; O2SAT 96
[2023-11-13] MEDS: SIMETHICONE 80 MG TAB.CHEW PO SCH (22:13)
[2023-11-13] MEDS: ALPRAZolam 0.5 MG TAB PO PRN (22:14)
[2023-11-13] MEDS ORDERED: MIDODRINE 5 MG TAB PO PRN (23:05)
[2023-11-14] VITALS: BP 104/62; PULSE 58; PULSE 65; RESP 18; TEMP 96.9; O2SAT 94
[2023-11-14 04:00] VITALS: BP 117/81; PULSE 69; PULSE 71; RESP 18; TEMP 97; O2SAT 94
[2023-11-14 06:29] LABS: BASOPHILS # (AUTO) 0.1 K/uL (0.00-0.22); BASOPHILS % (AUTO) 0.9 % (0.0-2.0); EOSINOPHILS # (AUTO) 0.3 K/uL (0-0.4); EOSINOPHILS % (AUTO) 4.2 % (0.0-4.0); HEMATOCRIT 39.2 % (36-52); HEMOGLOBIN 13.5 g/dL (12.0-18.0); LYMPHOCYTES # (AUTO) 1.4 K/uL (2.0-11.5); LYMPHOCYTES % (AUTO) 22.3 % (20.5-51.1); MEAN CORPUSCULAR HEMOGLOBIN 30 pg (27-31); MEAN CORPUSCULAR HGB CONC 34 g/dL (33-37); MEAN CORPUSCULAR VOLUME 87.5 fL (80-94); MONOCYTES # (AUTO) 0.9 K/uL (0.8-1.0); MONOCYTES % (AUTO) 14.2 % (1.7-9.3); NEUTROPHILS # (AUTO) 3.8 K/uL (1.8-7.7); NEUTROPHILS % (AUTO) 58.4 % (42.2-75.2); PLATELET COUNT (AUTO) 216 K/uL (140-450); RED BLOOD CELL COUNT(AUTO) 4.48 MIL/uL (4.20-6.10); RED CELL DISTRIBUTION WIDTH 13.5 % (11.6-13.7); WHITE BLOOD COUNT (AUTO) 6.4 K/uL (4.8-10.8)
[2023-11-14 06:48] LABS: ANION GAP 12.7 (8-16); CALCIUM 7.9 mg/dL (8.5-10.1); CARBON DIOXIDE 25.2 mmol/L (21-32); CREATININE 1.4 mg/dL (0.6-1.3); POTASSIUM 3.9 mmol/L (3.5-5.1)
[2023-11-14 07:02] LABS: MAGNESIUM 1.9 mg/dL (1.8-2.4); PHOSPHORUS 2.7 mg/dL (2.5-4.9)
[2023-11-14 08:00] VITALS: BP 110/68; PULSE 58; PULSE 61; RESP 18; RESP 19; TEMP 96.8; O2SAT 96
[2023-11-14 10:06] VITALS: BP 110/68; PULSE 58; RESP 19; TEMP 96.8; O2SAT 96
[2023-11-14] MEDS ORDERED: BUS5 PO (10:21)
[2023-11-14] MEDS ORDERED: HYDR-4255 PO (10:21)
[2023-11-14] MEDS ORDERED: QUET100T44 PO (10:21)
[2023-11-14 10:33] VITALS: BP 125/79
[2023-11-14] MEDS ORDERED: SODIUM PHOSPHATE 118 ML ENEM RC PRN (11:10)
[2023-11-14 12:00] VITALS: PULSE 53
[2023-11-14] MEDS: SODIUM PHOSPHATE 118 ML ENEM RC SCH (13:00)
== END 2023-11-14 16:52 | DRG 640 ==
LOC: MED 12:27 → MTU 14:52
DX: E87.1 Hypo-osmolality and hyponatremia (principal); G93.41 Metabolic encephalopathy; N17.0 Acute kidney failure with tubular necrosis; F33.9 Major depressive disorder, recurrent, unspecified; N18.31 Chronic kidney disease, stage 3a; I11.0 Hypertensive heart disease with heart failure; K59.00 Constipation, unspecified; F20.9 Schizophrenia, unspecified; E83.42 Hypomagnesemia; N40.0 Benign prostatic hyperplasia without lower urinary tract symptoms; E78.5 Hyperlipidemia, unspecified; Z79.899 Other long term (current) drug therapy
CPT/HCPCS: 36415; 71045; 74018; 80048; 80305; 81003; 82140; 82150; 83036; 83605; 83690; 83735; 83880; 84100; 84439; 84443; 84484; 85025; 85610; 85730; 87040; 87081; 87086; 97116; 97163-GP; 99285; C9113; J3475; Q0092; Q0162; Q0177